=== PATIENT | female | born 1965 | race Caucasian/White ===

== ENCOUNTER → 2018-07-21 | Day surgery (SDC) | payer OTHER ==
[~2018-07-21] MED LIST: LIDOCAINE 1% INJ-PF (10 MG/ML) 30 ML SDV ONE
--- NOTE | 2018-07-25 15:09 | WOMENS IMAGING REPORT ---
EXAM DESCRIPTION: U/S BREAST BX; BILAT DIG DX MAMMO NO CHG COMPLETED DATE/TIME: 07/25/2018 2:04 pm; 07/21/2018 2:33 pm; 07/21/2018 2:23 pm REASON FOR STUDY: N63.0 UNSPECIFIED LUMP IN UNSPECIFIED BREAST; N63.10 BILAT BREAST BIOPSY; N63.10 S /P BILAT US BX FOR CLIP PLACEMENT N63.10 UNSPECIFIED LUMP IN THE RIGHT BREAST, UNSPECIFIED BERTHA COMPARISON: 06/17/2018 mammograms/tomosynthesis TECHNIQUE: The procedure was discussed with the patient and the patient agreed to proceed. RIGHT BREAST: The patient was scanned and the area of interest in the 10 TO 11 o'clock position 3 cm from the nippl e of the right breast was localized. This correlates with the area of concern on prior imaging studi es. This area was targeted for ultrasound-guided core biopsy. After sterile skin prep and 2.5 mL local lidocaine 1% for skin and deep tissue anesthesia, a 14 gauge coaxial core biopsy needle was used to obtain several cores of tissue from the lesion. Under ultras ound guidance, a ribbon clip was placed in the areas sampled. There were no immediate post-procedure complications. MAMMOGRAM: Post-procedure two view mammogram was acquired in the digital mammogram suite. The clip wa s in the expected location. No significant hematoma. Pathology yields a diagnosis of fibroadenoma Pathology is concordant LEFT BREAST: The patient was scanned and the area of interest in the 9 to 10 o'clock position retroareolar left br east was localized. This correlates with the area of concern on prior imaging studies. This area was targeted for ultrasound-guided core biopsy. After sterile skin prep and 2.5 mL local lidocaine 1% for skin and deep tissue anesthesia, a 14 gauge coaxial core biopsy needle was used to obtain several cores of tissue from the lesion. Under ultras ound guidance, a ribbon clip was placed in the areas sampled. There were no immediate post-procedure complications. MAMMOGRAM: Post-procedure two view mammogram was acquired in the digital mammogram suite. The clip wa s in the expected location. No significant hematoma. Pathology yields a diagnosis of fibroadenoma Pathology is concordant. LIMITATIONS: None. FINDINGS: Ultrasound guided breast biopsy as described above. POST PROCEDURE MAMMOGRAMS FOR MARKER PLACEMENT: Yes IMPRESSION: ULTRASOUND-GUIDED CORE BIOPSY OF THE RIGHT BREAST YIELDS A DIAGNOSIS OF FIBROADENOMA ULTRASOUND-GUIDED CORE BIOPSY OF THE LEFT BREAST YIELDS A DIAGNOSIS OF FIBROADENOMA COMMENT: BI-RADS 2, BENIGN FINDINGS. COMMUNICATION: PATIENT UNDERSTANDS THAT THESE WERE BENIGN BIOPSIES. NO FURTHER FOLLOW UP FOR THESE L ESIONS. PATIENT SHOULD RETURN TO YEARLY BILATERAL SCREENING TOMOSYNTHESIS IN MAY 2019. Patient medication list reviewed: Yes- Quality ID# [id number]:Eligible professional attests to documenting i n the medical record they obtained, updated, or reviewed the patient's current medications. TECHNICAL DOCUMENTATION: JOB ID: [id number] [employer]- All Rights Reserved Reading location - IP/workstation name: [email or web address]
== END ==
LOC: WI 13:04
PROVIDERS: ATTEND Surgery
DX: D24.2 Benign neoplasm of left breast (principal); N63.10 Unspecified lump in the right breast, unspecified quadrant
CPT/HCPCS: 88305 ×2; 19083; J3490